=== PATIENT | male | born 1985 | race Caucasian/White ===

== ENCOUNTER 2024-05-31 16:44 | Emergency (ER) | payer BC, SELFPAY ==
--- NOTE | 2024-05-31 16:50 | ED_ITS ---
HPI - URI/Sore Throat General Chief Complaint: Upper Respiratory Infection Stated Complaint: respiratory issues Time Seen by Provider: 05/31/24 17:00 Source: patient Mode of arrival: ambulatory Limitations: no limitations History of Present Illness HPI Narrative: Buzz is a 38-year-old male patient presenting to the clinic today with complaints of cough, runny nose, congestion, scratchy throat, and feeling feveri sh for the past week. He denies any chest pain or shortness of breath. MD elicited complaint: cough, sore throat and nasal congestion Related Data Allergies Allergy/AdvReac Type Severity Reaction Status Date / Time No Known Allergies Allergy Unknown Verified 05/31/24 16:56 Review of Systems Review of Systems: Pertinent positives per HPI. Patient denies any rash, headache, visual changes, dizziness, shortness of breath, chest pain, palpitations, nausea, vomiting, diarrhea, constipation, abdominal pain, or any urinary issues. PMFSH Comments At the time of my signature, I reviewed and agree with the nursing past medical, surgical, social, and family history. There is no relevant family history pertinent to the patient complaint. Exam Narrative: General: Well-developed, well nourished, in no apparent distress Head: Normocephalic, atraumatic Eyes: Pupils equally round and reactive to light bilaterally, EOM intact, sclera and conjunctive clear, no discharge, lids normal Ears: TMs intact and clear, ear canals clear, no drainage, grossly hearing normal. Nose: Nares patent, clear nasal discharge, mild inflammation, no sinus tenderness. Mouth: Oral pharynx without lesions or masses, good dentition, MMM. Postnasal drip Neck: Supple, trachea midline, no enlargement of anterior or posterior cervical nodes, no thyroid masses or goiter palpable. Cardio: Regular rate and rhythm, s1 and s2 normal, no murmur appreciated. Resp: Clear to auscultation bilaterally, no rhonchi, rales, wheezing or rubs Course Course Emergency Course: Portions of this record may have been created with voice recognition software. Level of Care: Express Care Visit Vital Signs Vital signs: Vital signs reviewed MDM - URI/Sore Throat MDM Narrative Medical decision making narrative: At the time of visit patient is resting comfortably on the exam table. Patient appears to be nontoxic. Plan: I suspect patient has URI. Will send in prescription for prednisone and Tessalon Perles. His lung sounds are clear in his oxygen saturations 100%. Denies any chest pain or shortness of breath. Supportive measures were discussed with the patient and they voiced understanding discharge instructions and agrees to treatment plan. Return precautions reviewed Differential Diagnosis Differential diagnosis: Likely upper respiratory infection, otitis media, sinusitis, viral infection, bronchitis, influenza, pharyngitis and other (COVID) Discharge Plan Discharge Clinical Impression: Upper respiratory infection Patient Disposition: Home, Self-Care Condition: Stable Instructions: Antibiotic Form, Cold Symptoms (ED) Additional Instructions: Take prescription medications only as prescribed-prednisone and Tessalon Perles Increase fluids and stay well hydrated Tylenol/motrin for pain/fever Flonase and OTC antihistamines as directed Vicks vapor rub to open sinuses Sinus rinses for congestion Cepacol spray, cough drops, throat lozenges, warm tea with honey/lemon, gargle salt water to soothe throat BRAT diet for diarrhea Clear liquids x 24 hours then advance as tolerated for nausea/vomiting Go to the ED if you develop a worsening in your condition- high fever not controlled by Tylenol or Motrin, dehydration, weakness, lethargy, shortness of breath, or chest pain. Follow up with your PCP in 3-5 days if symptoms persist. Prescriptions: New benzonatate 200 mg capsule 200 mg PO TID 7 Days Qty: 21 0RF prednisone 20 mg tablet 40 mg PO DAILY 5 Days Qty: 10 0RF Follow-up/Referrals: UNKNOWN,DOCTOR [Primary Care Provider] - Time of Disposition: 17:04 Quality NIHSS Nursing Documentation ED NIHSS nursing documentation: reviewed/agree
[2024-05-31 16:56] VITALS: BP 122/72; PULSE 63; RESP 18; TEMP 36.5; O2SAT 100
== END 2024-05-31 17:09 | disposition home or self-care (01) ==
PROVIDERS: Emergency Provider Nurse Practitioner Family
DX: J06.9 Acute upper respiratory infection, unspecified (principal)
CPT/HCPCS: 99213; G0463

== ENCOUNTER 2024-12-31 19:24 | Emergency (ER) | payer BC, SELFPAY ==
--- NOTE | 2024-12-31 19:26 | ED_ITS ---
HPI - Wound/Laceration General Chief Complaint: Wound/Laceration Stated Complaint: Cut Finger Source: patient Mode of arrival: ambulatory Limitations: no limitations History of Present Illness HPI narrative: Patient is a 39 year old male who presents to the clinic with complaints of a laceration to his right hand fourth finger an hour ago. He states he cut his hand on a razor blade. He is not up-to-date on tetanus. Denies any numbness, tingling, or radiation of pain. Related Data Home Medications ?Medication ?Instructions ?Recorded ?Confirmed ?Last Taken ?Type cetirizine 5 mg-pseudoephedrine ER 1 tablet PO ONCE 12/31/24 12/31/24 Unknown History 120 mg tablet,extended release,12hr (Zyrtec-D) Allergies Allergy/AdvReac Type Severity Reaction Status Date / Time No Known Allergies Allergy Unknown Verified 12/31/24 19:27 Review of Systems Review of Systems: CONSTITUTIONAL: Denies body aches, fever, chills, or sweats. EYES: Denies visual changes, redness, or discharge. ENT: Denies rhinorrhea, congestion CARDIOVASCULAR: Denies chest pain, palpitations, or edema. RESPIRATORY: Denies cough or dyspnea. GASTROINTESTINAL: Denies abdominal pain, nausea, vomiting, or diarrhea. SKIN: ?Reports a laceration to his right fourth finger. MUSCULOSKELETAL: Denies back pain, joint pain, or myalgia. NEUROLOGIC: Denies headache, numbness, tingling, or weakness. All systems reviewed & are unremarkable except as noted in HPI and below PMFSH Comments At time of signature, I have reviewed and agree with nursing past medical, surgical, social and family history unless otherwise noted. Please see nursing chart for further information. There is no relevant family history pertinent to the presenting complaint. Exam Narrative: GENERAL: Well-appearing HEAD: Normocephalic, atraumatic. EYES: ?conjunctivae clear, and EOMI. ENT: Mucous membranes moist. Oropharynx without edema, erythema or lesions. NECK: Supple. No lymphadenopathy CHEST: Clear to auscultation. HEART: Regular rate and rhythm. SKIN: Warm, dry. ?1.5 cm linear laceration noted to right hand fourth finger at MCP. CMS intact. NEURO: ?Alert and oriented x3.? Course Course Level of Care: Express Care Visit Vital Signs Vital signs: Reviewed Procedures Laceration Laceration 1: Date: 12/31/24 Time: 19:50 Site: other (right fourth finger. ) Side (If applicable): right Description: linear ====== Skin Level ====== Skin layer closed with: dermabond and steri strips ====== Subcutaneous Layer ====== ====== Muscle Layer ====== ====== Tendon Layer ====== Dressing: The procedure and its alternatives were reviewed with patient. Risks were reviewed with patient including infection and damage to nearby structures. Patient provided verbal informed consent. The patient was positioned appropriately. Wound was explored for abnormalities including infection and foreign bodies. Patient tolerated well, no complications. Dressing applied per RN. MDM - Wound/Laceration MDM Narrative Medical decision making narrative: Discussed physical exam findings. Dermabond and Steristrips placed on laceration. Antibiotic given for prevention of infection. Tetanus updated. Advised supportive measures and signs/symptoms to go to the ER. Pt is appropriate for outpatient treatment and follow up. Differential Diagnosis Differential diagnosis: Likely laceration, abrasion and avulsion of skin Critical Care Time Critical Care Time Critical Care Time: No Discharge Plan Discharge Clinical Impression: Laceration Patient Disposition: Home Condition: Stable Instructions: Laceration (ED) Additional Instructions: Take antibiotic as prescribed. The glue film will fall off in 5 to 10 days Steri-Strips will roll off on their own within 14 days Do not soak your wound. Avoid frequent or prolonged contact with water, including heavy perspiration. This may loosen the skin glue before the wound is healed. Keep the area clean and dry - cleanse with warm water and mild soap and allow to fully dry. Watch for worsening symptoms including pain, redness, swelling, streaking, pus/drainage, fever. Go to the ER with any of these symptoms or concerns. Follow up with primary care provider in 1 week as needed. Patient Language: Syriac Prescriptions: New cephalexin 500 mg capsule 500 mg PO Q12H 7 Days Qty: 14 0RF No Action cetirizine-pseudoephedrine [Zyrtec-D] 5-120 mg tablet extended release 12 hr 1 tablet PO ONCE Follow-up/Referrals: PHYSICIAN,MARRIAGE AND FAMILY THERAPIST [Primary Care Provider] - Stand Alone Forms: Work/School Release IP Time of Disposition: 19:51
[2024-12-31 19:30] VITALS: BP 134/75; PULSE 60; RESP 16; TEMP 36.6; O2SAT 100
[2024-12-31] MEDS: TETANUS,DIPHTHERIA,AC PERTUSSIS ADULT (0.5 ML) BOOSTRIX IM (19:44)
== END 2024-12-31 20:05 | disposition home or self-care (01) ==
DX: S61.214A Laceration without foreign body of right ring finger without damage to nail, initial encounter (principal); W26.8XXA Contact with other sharp object(s), not elsewhere classified, initial encounter; Z23 Encounter for immunization
CPT/HCPCS: 12001; 90471; 90715; 99213; G0463

== ENCOUNTER 2025-01-03 16:50 | Emergency (ER) | payer BC, SELFPAY ==
[2025-01-03 18:11] VITALS: BP 118/87; PULSE 53; RESP 16; TEMP 36.1; O2SAT 100
--- NOTE | 2025-01-03 18:53 | ED.WOUNDLAC ---
HPI - Wound/Laceration General Chief Complaint: Wound/Laceration Stated Complaint: wound check Time Seen by Provider: 01/03/25 18:50 Source: patient, RN notes reviewed and old records reviewed Mode of arrival: ambulatory Limitations: no limitations History of Present Illness HPI narrative: 39-year-old male presents to the [facility] with concerns of a wound that was glued and Steri-Stripped 2 days ago. States he cut his right 4th finger on a multi tool came to the [facility], area was cleaned, glued and Steri-Stripped. Patient was placed on antibiotics which he is reporting he takes. Onset (ago): day(s) (2) Related Data Home Medications ?Medication ?Instructions ?Recorded ?Confirmed ?Last Taken ?Type cetirizine 5 mg-pseudoephedrine ER 1 tablet PO ONCE 12/31/24 01/03/25 Unknown History 120 mg tablet,extended release,12hr (Zyrtec-D) Allergies Allergy/AdvReac Type Severity Reaction Status Date / Time No Known Allergies Allergy Unknown Verified 01/03/25 18:10 Review of Systems Review of Systems: All systems reviewed & are unremarkable except as noted in HPI and below Constitutional: Constitutional: Reports no additional constitutional complaints ENT: Reports system reviewed and no additional complaints, except as documented Cardiovascular: Cardiovascular: Reports no additional cardiovascular complaints, Denies chest pain and Denies dyspnea Respiratory: Respiratory: Reports no additional respiratory complaints, Denies chest congestion, Denies cough and Denies dyspnea Musculoskeletal: Musculoskeletal: Reports no additional musculoskeletal complaints Integumentary/Breasts: Skin/Breast: Reports as per HPI and Reports wounds (Not approximated wound 4th finger) PMFSH Comments At the time of my signature, I reviewed and agree with the nursing past medical, surgical, social, and family history. There is no relevant family history pertinent to the patient complaint. Exam Const: General: cooperative, healthy appearing, comfortable, no acute distress, well developed, alert and well nourished Nutritional Appearance: well nourished Orientation/consciousness: patient oriented x3 Limitations: no limitations HENMT: Head: normal to inspection Eyes: General: appearance normal, both eyes and all related structures Alignment and Position: alignment normal Neck: Neck: normal visual inspection, full ROM, no lymphadenopathy and no meningeal signs Chest: Chest palpation & inspection: normal inspection of the chest Resp: Effort & Inspection: normal respiratory effort and able to speak in complete sentences Cardio: Rate: regular rate Skin: General skin exam: normal color and no rashes or lesions noted Wounds: wounds noted (base rt 4th finger) Neuro: General: patient oriented x3, gait normal, moves all extremities and no meningeal signs Cognition (Neuro): normal cognition Speech: normal speech Gait exam (Neuro): Normal gait present Extrem: General: normal to inspection, full ROM, capillary refill normal and normal gait Psych: Appearance: grossly normal and well kempt Mental Status: mental status grossly normal Speech and movement: Normal speech and movement present and Clear speech present Affect: normal affect Attitude: cooperative Course Course Level of Care: Express Care Visit Vital Signs Vital signs: Vital Signs Temperature 97 F L 01/03/25 18:11 Pulse Rate 53 L 01/03/25 18:11 Respiratory Rate 16 01/03/25 18:11 Blood Pressure 118/87 01/03/25 18:11 Pulse Oximetry 100 01/03/25 18:11 Temperature 97 F L 01/03/25 18:11 Pulse Rate 53 L 01/03/25 18:11 Respiratory Rate 16 01/03/25 18:11 Blood Pressure 118/87 01/03/25 18:11 Pulse Oximetry 100 01/03/25 18:11 Reviewed Procedures Laceration Laceration 1: Date: 01/03/25 Site: hand (4h finger) Side (If applicable): right Size (cm): 1.7 Description: linear Depth: simple, single layer Local Anesthetic: lidocaine 1% Amount of anesthesia used (mL): 2.5 Pre-repair: wound explored and irrigated (100mls) ====== Skin Level ====== Skin layer closed with: nylon Size (cm): 6-0 Number of sutures: 3 Technique: simple, interrupted ====== Subcutaneous Layer ====== ====== Muscle Layer ====== ====== Tendon Layer ====== Dressin.7 cm laceration, gaping 0.4 cm open. Due to length of time wound was open, approximated but did not completely close the wound. Had irrigated wound. Three sutures placed, patient tolerated well MDM - Wound/Laceration MDM Narrative Medical decision making narrative: Patient returns to the [facility] with open laceration post treatment with Steri-Strips and Dermabond. Dermabond and Steri-Strips came off, wound is open. Rest of the Steri-Strips Dermabond remove, gaping wound. Area cleaned, irrigated 100 mils of saline. Loosely placed 3 sutures, patient tolerated well Patient appropriate for outpatient treatment with close follow-up Discharge instructions reviewed with patient, as well as provided in writing per nursing staff. The instructions also include specific and strict return/GO TO THE ER as well as f/u information. All questions have been answered, and the patient deny any further questions with discharge and discharge plan. Some parts of this dictation were generated by voice recognition software and may contain typographical and/or grammatical inaccuracies. Differential Diagnosis Differential diagnosis: Likely laceration, abrasion and avulsion of skin Critical Care Time Critical Care Time Critical Care Time: No Discharge Plan Discharge Clinical Impression: Laceration, Open wound Patient Disposition: Home Condition: Stable Instructions: Antibiotic Form, Care For Your Stitches (ED) Additional Instructions: Follow-up with your primary care provider in 10 days to have sutures removed. Wash 2 to 3 times a day with warm soapy water. Keep it covered when not at home. Try leaving open to air when at home. After 3 days you can apply bacitracin, scant amount. Twice daily. For new or worsening symptoms go directly to the emergency room Patient Language: Liberian Prescriptions: No Action cetirizine-pseudoephedrine [Zyrtec-D] 5-120 mg tablet extended release 12 hr 1 tablet PO ONCE cephalexin 500 mg capsule 500 mg PO Q12H 7 Days Qty: 14 0RF Follow-up/Referrals: Subhash Mulligan MD [Physician] - PHYSICIAN,DIP LUBE OPERATOR [Primary Care Provider] - Time of Disposition: 19:31
[2025-01-03] MEDS: LIDOCAINE 1% LOCAL INJ 2 ML AMPUL 4 ML INFILTRATE (20:04)
== END 2025-01-03 19:35 | disposition home or self-care (01) ==
PROVIDERS: Emergency Provider Nurse Practitioner
DX: S61.214A Laceration without foreign body of right ring finger without damage to nail, initial encounter (principal); W26.8XXA Contact with other sharp object(s), not elsewhere classified, initial encounter
CPT/HCPCS: 12001; 99212; G0463; J2003